=== PATIENT | male | born 1975 | race Two or more races ===

== ENCOUNTER → 2017-12-01 | Outpatient (CLI) | payer OTHER ==
[2017-12-01 13:00] LABS: ALBUMIN/GLOBULIN RATIO 1.18 (1.00-1.93); ALKALINE PHOSPHATASE 69 U/L (45-117); ALT/SGPT 22 U/L (12-78); ANION GAP 7 MEQ/L (8-16); AST/SGOT 14 U/L (7-37); BILIRUBIN,TOTAL 0.7 MG/DL (0.2-1.0); BLOOD UREA NITROGEN 11 MG/DL (7-18); CALCIUM LEVEL 8.9 MG/DL (8.5-10.1); CARBON DIOXIDE LEVEL 30 MEQ/L (21-32); CHLORIDE LEVEL 104 MEQ/L (98-107); CHOLESTEROL LEVEL 163 MG/DL (<200); CREATININE FOR GFR 0.87 MG/DL (0.70-1.30); GLOMERULAR FILTRATION RATE > 60.0 (>60); GLUCOSE, FASTING 87 MG/DL (70-100); HDL CHOLESTEROL 50 MG/DL (>40); LDL CHOLESTEROL 91.2 MG/DL (<100); NON-HDL-C 113 MG/DL; POTASSIUM SERUM 3.9 MEQ/L (3.5-5.1); SODIUM LEVEL 141 MEQ/L (136-145); TOTAL PROTEIN 7.4 GM/DL (6.4-8.2); TRIGLYCERIDES LEVEL 109 MG/DL (<150)
== END ==
LOC: M LAB 11:30
DX: Z00.01 Encounter for general adult medical examination with abnormal findings (principal)
CPT/HCPCS: 84443

== ENCOUNTER → 2018-10-11 | Outpatient (CLI) | payer MEDICAID | LOC: M OUTALCOH 07:54 | PROVIDERS: ATTEND Psychiatry & Neurology Psychiatry | DX: Z03.89 Encounter for observation for other suspected diseases and conditions ruled out (principal) ==

== ENCOUNTER 2018-11-01 07:47 | Outpatient (RCR) | payer MEDICAID | END 2018-11-22 | LOC: M OUTALCOH 07:47 | PROVIDERS: ATTEND Psychiatry & Neurology Psychiatry | DX: Z03.89 Encounter for observation for other suspected diseases and conditions ruled out (principal) ==

== ENCOUNTER → 2019-01-22 | Outpatient (CLI) | payer MEDICAID, OTHER ==
--- NOTE | 2019-01-22 08:56 | REP ---
RIGHT UPPER QUADRANT SONOGRAPHY: HISTORY: Evaluate gallbladder and liver. Right upper quadrant pain. FINDINGS: Scanning through the right upper quadrant of the abdomen demonstrates a normal sized thin-walled gallbladder without evidence of stone or polyp. Common bile duct is normal measuring 0.5 cm in greatest diameter. There is evidence of fatty infiltration of the liver with areas of sparing adjacent to the gallbladder. No focal liver lesion is seen. No intrahepatic ductal dilation is observed. No pancreatic abnormality is seen. There is no evidence of ascites or right renal abnormality. The right kidney measures 12.2 x 6.5 x 5.4 cm. Normal caliber aorta is seen. IMPRESSION: Evidence of fatty infiltration of the liver. Otherwise negative right upper quadrant sonography. Electronically Signed by Tonio Durán MD 01/22/2019 09:13 A
== END ==
LOC: M RAD 06:35
PROVIDERS: ATTEND Family Medicine Addiction Medicine
DX: R10.11 Right upper quadrant pain (principal)

== ENCOUNTER → 2019-03-15 | Outpatient (CLI) | payer OTHER ==
--- NOTE | 2019-03-15 13:26 | REP ---
Clinical: Bilateral shoulder pain. Technique: AP and lateral views of the bilateral scapulae. Findings: The bilateral scapula as well as the visualized bilateral shoulders appear essentially symmetric and normal for age. Surrounding soft tissues are unremarkable. Impression: Normal age appropriate bilateral scapula radiograph series. Electronically Signed by Apollo Romero MD 03/15/2019 01:18 P
--- NOTE | 2019-03-15 13:28 | REP ---
Clinical: thoracic pain. Technique: AP, lateral, and swimmers views. Findings: Alignment and kyphosis is maintained. Vertebral bodies intact. No acute fracture / compression injury or subluxation. No degenerative changes. Paravertebral soft tissues are normal. Impression: Normal thoracic spine series. Electronically Signed by Apollo Romero MD 03/15/2019 01:19 P
== END ==
LOC: M RAD 11:54
PROVIDERS: ATTEND Family Medicine Addiction Medicine
DX: M25.511 Pain in right shoulder (principal)

== ENCOUNTER 2019-07-26 09:46 | Day surgery (SDC) | payer OTHER ==
[~2019-07-26] VITALS: Ht 190.5 cm; Wt 106.5 kg
[~2019-07-26 09:46] MED LIST: CITA40TA6 PO; NS 1,000 ML IV ONE; TRAZ-163 PO; ZANT150T40 PO
[2019-07-26] MEDS ORDERED: LIDOCAINE 2% INJ 100 MG/5 ML SDV (FOR ANES.) As Ordered ONE (10:08)
[2019-07-26] MEDS ORDERED: PROPOFOL 200 MG/20 ML VIAL As Ordered ONE ×2 (10:47→12:24)
[2019-07-26] MEDS ORDERED: fentaNYL 100 MCG/2 ML INJECTION (J3010) As Ordered ONE (12:05)
--- NOTE | 2019-07-26 13:07 | ROOR ---
Patient Name: Troy Collier Procedure Date: 07/26/2019 12:03 PM Date of : 1975 Age: 43 Room: [facility] Gender: Male Note Status: Finalized Procedure: Upper GI endoscopy Indications: Heartburn Providers: Ever Funk MD Referring MD: Toño BARTHOLOMEW MD Requesting Provider: Medicines: Monitored Anesthesia Care Complications: No immediate complications. Procedure: Pre-Anesthesia Assessment: - Prior to the procedure, a History and Physical was performed, and patient medications and allergies were reviewed. The patient is competent. The risks and benefits of the procedure and the sedation options and risks were discussed with the patient. All questions were answered and informed consent was obtained. Patient identification and proposed procedure were verified by the physician, the nurse and the anesthesiologist in the procedure room. Mental Status Examination: alert and oriented. Airway Examination: normal oropharyngeal airway and neck mobility. Respiratory Examination: clear to auscultation. CV Examination: normal. Prophylactic Antibiotics: The patient does not require prophylactic antibiotics. Prior Anticoagulants: The patient has taken no previous anticoagulant or antiplatelet agents. ASA Grade Assessment: II - A patient with mild systemic disease. After reviewing the risks and benefits, the patient was deemed in satisfactory condition to undergo the procedure. The anesthesia plan was to use monitored anesthesia care (MAC). Immediately prior to administration of medications, the patient was re-assessed for adequacy to receive sedatives. The heart rate, respiratory rate, oxygen saturations, blood pressure, adequacy of pulmonary ventilation, and response to care were monitored throughout the procedure. The physical status of the patient was re-assessed after the procedure. The Endoscope was introduced through the mouth, and advanced to the second part of duodenum. The upper GI endoscopy was accomplished without difficulty. The patient tolerated the procedure well. Findings: The Z-line was irregular and was found 40 cm from the incisors. Biopsies were taken with a cold forceps for histology. Verification of patient identification for the specimen was done by the physician and nurse using the patient's name, date and medical record number. Estimated blood loss was minimal. Scattered mild inflammation characterized by erythema and granularity was found in the gastric antrum. Biopsies were taken with a cold forceps for Helicobacter pylori testing. The duodenal bulb and second portion of the duodenum were normal. Impression: - Z-line irregular, 40 cm from the incisors. Biopsied. - Gastritis. Biopsied. - Normal duodenal bulb and second portion of the duodenum. Recommendation: - Patient has a contact number available for emergencies. The signs and symptoms of potential delayed complications were discussed with the patient. Return to normal activities tomorrow. Written discharge instructions were provided to the patient. - High fiber diet. - Continue present medications. - Follow an antireflux regimen. - Await pathology results. - Telephone GI clinic for pathology results in 2 weeks. - Return to primary care physician. Ever Funk MD Ever Funk MD 07/26/2019 1:07:30 PM Electronically signed by Ever Funk MD Number of Addenda: 0 Note Initiated On: 07/26/2019 12:03 PM Estimated Blood Loss: Estimated blood loss was minimal.
--- NOTE | 2019-07-26 13:27 | ROOR ---
Patient Name: Troy Collier Procedure Date: 07/26/2019 12:11 PM Date of : 1975 Age: 43 Room: [facility] Gender: Male Note Status: Finalized Procedure: Colonoscopy Indications: Hematochezia Providers: Ever Funk MD Referring MD: Toño BARTHOLOMEW MD Requesting Provider: Medicines: Monitored Anesthesia Care Complications: No immediate complications. Procedure: Pre-Anesthesia Assessment: - Prior to the procedure, a History and Physical was performed, and patient medications and allergies were reviewed. The patient is competent. The risks and benefits of the procedure and the sedation options and risks were discussed with the patient. All questions were answered and informed consent was obtained. Patient identification and proposed procedure were verified by the physician, the nurse and the anesthesiologist in the procedure room. Mental Status Examination: alert and oriented. Airway Examination: normal oropharyngeal airway and neck mobility. Respiratory Examination: clear to auscultation. CV Examination: normal. Prophylactic Antibiotics: The patient does not require prophylactic antibiotics. Prior Anticoagulants: The patient has taken no previous anticoagulant or antiplatelet agents. ASA Grade Assessment: II - A patient with mild systemic disease. After reviewing the risks and benefits, the patient was deemed in satisfactory condition to undergo the procedure. The anesthesia plan was to use monitored anesthesia care (MAC). Immediately prior to administration of medications, the patient was re-assessed for adequacy to receive sedatives. The heart rate, respiratory rate, oxygen saturations, blood pressure, adequacy of pulmonary ventilation, and response to care were monitored throughout the procedure. The physical status of the patient was re-assessed after the procedure. The Colonoscope was introduced through the anus and advanced to the cecum, identified by appendiceal orifice and ileocecal valve. The colonoscopy was performed without difficulty. The patient tolerated the procedure well. The quality of the bowel preparation was good. The terminal ileum, ileocecal valve, appendiceal orifice, and rectum were photographed. Scope insertion time was 3 minutes. Scope withdrawal time was 11 minutes. The total duration of the procedure was 14 minutes. Findings: The perianal and digital rectal examinations were normal. The terminal ileum appeared normal. Three sessile polyps were found in the cecum. The polyps were 3 to 10 mm in size. These polyps were removed with a cold snare. Resection and retrieval were complete. To close a defect after polypectomy, one hemostatic clip was successfully placed. There was no bleeding at the end of the procedure. A 12 mm polyp was found in the descending colon. The polyp was sessile. The polyp was removed with a cold snare. Resection and retrieval were complete. Two sessile polyps were found in the rectum. The polyps were 4 to 6 mm in size. These polyps were removed with a cold snare. Resection and retrieval were complete. Verification of patient identification for the specimen was done by the physician and nurse using the patient's name, date and medical record number. Estimated blood loss was minimal. Non-bleeding external and internal hemorrhoids were found during retroflexion. The hemorrhoids were medium-sized. Impression: - The examined portion of the ileum was normal. - Three 3 to 10 mm polyps in the cecum, removed with a cold snare. Resected and retrieved. Clip was placed. - One 12 mm polyp in the descending colon, removed with a cold snare. Resected and retrieved. - Two 4 to 6 mm polyps in the rectum, removed with a cold snare. Resected and retrieved. - Non-bleeding external and internal hemorrhoids. Recommendation: - Patient has a contact number available for emergencies. The signs and symptoms of potential delayed complications were discussed with the patient. Return to normal activities tomorrow. Written discharge instructions were provided to the patient. - High fiber diet. - Continue present medications. - Await pathology results. - Repeat colonoscopy in 3 - 5 years for surveillance based on pathology results. - Telephone GI clinic for pathology results in 2 weeks. - Return to primary care physician. Ever Funk MD Ever Funk MD 07/26/2019 1:27:01 PM Electronically signed by Ever Funk MD Number of Addenda: 0 Note Initiated On: 07/26/2019 12:11 PM Estimated Blood Loss: Estimated blood loss was minimal.
[2019-07-26 13:30] VITALS: BP 153/88
== END 2019-07-26 14:00 | disposition home or self-care (01) ==
LOC: M OPP 09:46
PROVIDERS: ATTEND Internal Medicine Gastroenterology
DX: K64.8 Other hemorrhoids (principal); D12.0 Benign neoplasm of cecum; K62.1 Rectal polyp; D12.4 Benign neoplasm of descending colon; K92.1 Melena; K22.8 Other specified diseases of esophagus; K29.70 Gastritis, unspecified, without bleeding; R12 Heartburn
CPT/HCPCS: 43239; 45385; 88305; J3010

== ENCOUNTER → 2019-09-04 | Outpatient (REF) | payer OTHER ==
[~2019-09-04] MED LIST changes: -NS 1,000 ML IV ONE
== END ==
LOC: M LAB REF 13:57
PROVIDERS: ATTEND Internal Medicine Gastroenterology
DX: B96.81 Helicobacter pylori [H. pylori] as the cause of diseases classified elsewhere (principal)

== ENCOUNTER → 2020-09-01 | Outpatient (REF) | payer OTHER ==
[~2020-09-01] MED LIST changes: -TRAZ-163 PO; +TRAZ-257 PO
[2020-09-01 16:58] LABS: BASO % 0.4 % (0.0-1.0); EOS # 0.2 10^3/uL (0.0-0.5); EOS % 2.5 % (0.0-3.0); HEMATOCRIT 49.7 % (42.0-52.0); HEMOGLOBIN 15.9 g/dl (13.5-17.5); LYMPH # 2.4 10^3/uL (1.5-5.0); LYMPH % 34.8 % (24.0-44.0); MEAN CORPUSCULAR HEMOGLOBIN 27.6 pg (27.0-33.0); MEAN CORPUSCULAR VOLUME 86.1 fl (80.0-96.0); MONO # 0.5 10^3/uL (0.0-0.8); MONO % 6.7 % (0.0-5.0); NEUTROPHILS # 3.8 10^3/uL (1.5-8.5); NEUTROPHILS % 55.3 % (36.0-66.0); PLATELET COUNT, AUTOMATED 272 10^3/uL (150-450); RED BLOOD COUNT 5.77 10^6/uL (4.30-6.10); WHITE BLOOD COUNT 6.9 10^3/uL (4.0-10.0)
[2020-09-01 17:27] LABS: ALBUMIN 4.4 GM/DL (3.2-5.2); ALT/SGPT 34 U/L (12-78); BILIRUBIN,TOTAL 0.6 MG/DL (0.2-1.0); BLOOD UREA NITROGEN 11 MG/DL (7-18); CALCIUM LEVEL 9.8 MG/DL (8.5-10.1); CARBON DIOXIDE LEVEL 32 MEQ/L (21-32); CHLORIDE LEVEL 103 MEQ/L (98-107); CHOLESTEROL LEVEL 205 MG/DL (<200); CHOLESTEROL RISK RATIO 4.659 (<5); CREATININE FOR GFR 0.96 MG/DL (0.70-1.30); FREE T4 0.66 NG/DL (0.76-1.46); GLOMERULAR FILTRATION RATE > 60.0 (>60); GLUCOSE, FASTING 78 MG/DL (70-100); HDL CHOLESTEROL 44 MG/DL (>40); LDL CHOLESTEROL 84 MG/DL (<100); NON-HDL-C 161 MG/DL; POTASSIUM SERUM 4.7 MEQ/L (3.5-5.1); SODIUM LEVEL 139 MEQ/L (136-145); TOTAL 25(OH) VITAMIN D 12.6 NG/ML (30.0-100.0); TOTAL PROTEIN 7.8 GM/DL (6.4-8.2); TRIGLYCERIDES LEVEL 384 MG/DL (<150)
[2020-09-01 17:31] LABS: HEMOGLOBIN A1c 5.7 %
[2020-09-03 23:07] LABS: PSA TOTAL 0.8 ng/mL (0.0-4.0)
== END ==
LOC: M LAB REF 16:21
PROVIDERS: ATTEND Nurse Practitioner Family
DX: K21.9 Gastro-esophageal reflux disease without esophagitis (principal); E66.9 Obesity, unspecified

== ENCOUNTER → 2021-03-15 | Outpatient (REF) | payer OTHER, MEDICAID ==
[2021-03-15 12:16] LABS: BASO % 0.6 % (0.0-1.0); EOS # 0.1 10^3/uL (0.0-0.5); EOS % 2.7 % (0.0-3.0); HEMATOCRIT 46.8 % (42.0-52.0); LYMPH # 1.6 10^3/uL (1.5-5.0); LYMPH % 31.1 % (24.0-44.0); MEAN CORPUSCULAR HEMOGLOBIN 28.5 pg (27.0-33.0); MEAN CORPUSCULAR HGB CONC 32.1 g/dl (32.0-36.5); MEAN CORPUSCULAR VOLUME 88.8 fl (80.0-96.0); MONO # 0.5 10^3/uL (0.0-0.8); MONO % 9.4 % (2.0-8.0); NEUTROPHILS # 2.9 10^3/uL (1.5-8.5); PLATELET COUNT, AUTOMATED 270 10^3/uL (150-450); RED BLOOD COUNT 5.27 10^6/uL (4.30-6.10); WHITE BLOOD COUNT 5.2 10^3/uL (4.0-10.0)
[2021-03-15 13:06] LABS: ALBUMIN 4.3 GM/DL (3.2-5.2); ALT/SGPT 25 U/L (12-78); BILIRUBIN,TOTAL 0.7 MG/DL (0.2-1.0); BLOOD UREA NITROGEN 12 MG/DL (7-18); CARBON DIOXIDE LEVEL 30 MEQ/L (21-32); CHLORIDE LEVEL 106 MEQ/L (98-107); CHOLESTEROL LEVEL 164 MG/DL (<200); CHOLESTEROL RISK RATIO 2.827 (<5); CREATININE FOR GFR 0.77 MG/DL (0.70-1.30); FREE T4 0.75 NG/DL (0.76-1.46); GLOMERULAR FILTRATION RATE > 60.0 (>60); GLUCOSE, FASTING 87 MG/DL (70-100); HDL CHOLESTEROL 58 MG/DL (>40); LDL CHOLESTEROL 91 MG/DL (<100); NON-HDL-C 106 MG/DL; POTASSIUM SERUM 3.9 MEQ/L (3.5-5.1); SODIUM LEVEL 138 MEQ/L (136-145); THYROID STIMULATING HORMONE 0.565 uIU/ML (0.358-3.740); TOTAL 25(OH) VITAMIN D 25.8 NG/ML (30.0-100.0); TOTAL PROTEIN 7.4 GM/DL (6.4-8.2); TRIGLYCERIDES LEVEL 74 MG/DL (<150)
[2021-03-15 14:30] LABS: HEMOGLOBIN A1c 5.4 %
== END ==
LOC: M LAB REF 11:23
PROVIDERS: ATTEND Nurse Practitioner Family
DX: Z13.228 Encounter for screening for other metabolic disorders (principal); E55.9 Vitamin D deficiency, unspecified; R73.03 Prediabetes

== ENCOUNTER → 2021-04-26 | Outpatient (CLI) | payer SELFPAY | LOC: M LABSMTC 09:43 | PROVIDERS: ATTEND Pediatrics | DX: Z11.52 Encounter for screening for COVID-19 (principal) ==

== ENCOUNTER 2021-06-10 06:27 | Emergency (ER) | payer MEDICAID, OTHER, SELFPAY ==
[~2021-06-10] VITALS: Ht 190.5 cm; Wt 98.6 kg
--- NOTE | 2021-06-10 09:18 | REP ---
INDICATION: pain COMPARISON: None. TECHNIQUE: Internal rotation, external rotation, and Y view. FINDINGS: No acute fracture or dislocation. The acromioclavicular joint appears normal. There is subtle blunting to the ossified glenoid rim. The glenohumeral joint is otherwise normal in appearance and position. No periarticular calcifications or loose bodies are appreciated. Sub acromial space is normal. Surrounding soft tissues are unremarkable. IMPRESSION: Some mild degenerative changes to the glenoid suggested. <Electronically signed by Apollo Romero > 06/10/21 [id number]
[2021-06-10] MEDS ORDERED: NAPR-837 PO (10:27)
[2021-06-10 10:34] VITALS: BP 130/74
== END 2021-06-10 10:37 | disposition home or self-care (01) ==
LOC: M ED 06:27
DX: M75.81 Other shoulder lesions, right shoulder (principal); F41.9 Anxiety disorder, unspecified; F33.9 Major depressive disorder, recurrent, unspecified; Z79.899 Other long term (current) drug therapy

== ENCOUNTER → 2021-08-16 | Outpatient (CLI) | payer OTHER ==
[~2021-08-16] MED LIST changes: +NAPR-837 PO
--- NOTE | 2021-08-16 14:54 | REP ---
INDICATION: DORSALGIA PT NEEDS EKG AFTER XRAYS. COMPARISON: 03/28/2018 TECHNIQUE: PA and lateral FINDINGS: The superior mediastinal structures are midline. The cardiac silhouette is unremarkable in size, shape, and position. The diaphragmatic surfaces of the lungs are regular, and the costophrenic angles are clear. The pulmonary workman are clear. The imaged osseous structures are intact. IMPRESSION: There is no acute cardiopulmonary disease. <Electronically signed by Wilder Alexander > 08/16/21 [id number]
--- NOTE | 2021-08-16 14:56 | REP ---
INDICATION: DORSALGIA PT NEEDS EKG AFTER XRAYS. COMPARISON: 03/15/2019 TECHNIQUE: AP and lateral views FINDINGS: There is no acute fracture or destructive osseous lesion. There is no significant change compared to the prior exam. IMPRESSION: No acute abnormality or evidence of significant change compared to the prior exam. <Electronically signed by Wilder Alexander > 08/16/21 [id number]
--- NOTE | 2021-08-16 14:56 | REP ---
INDICATION: DORSALGIA PT NEEDS EKG AFTER XRAYS. COMPARISON: 03/15/2019 TECHNIQUE: AP and lateral FINDINGS: Vertebral body height and alignment is unchanged. The disc spaces are unchanged. The pedicles are again seen to be intact bilaterally. IMPRESSION: No acute abnormality or evidence of significant change compared to the prior exam. <Electronically signed by Wilder Alexander > 08/16/21 [id number]
--- NOTE | 2021-08-16 21:17 | ECGEPIP ---
[facility] Test Date: 2021-08-16 Pat Name: DEBORAH PADILLA Department: Room: - Gender: Male Vp Public Relations: neva : 1975 Requested By: Christopher Orosco Order Number: [id number] Reading MD: Campbell Machuca Measurements Intervals [place] Rate: 57 P: 61 DE: 158 QRS: 5 QRSD: 84 T: 21 QT: 396 QTc: 385 Interpretive Statements Sinus bradycardia Minimal voltage criteria for LVH, may be normal variant ( Sokolow-Pagan ) Compared to prior tracings(3) in the system, Atrial Fib was noted on 12/18/14 at 2 23:46. Otherwise no significant changes. Electronically Signed on 08-16-2021 21:17:08 EDT by Campbell Machuca
== END ==
LOC: M EKG 12:16
PROVIDERS: ATTEND Family Medicine Addiction Medicine
DX: M54.9 Dorsalgia, unspecified (principal)

== ENCOUNTER → 2021-09-01 | Outpatient (REF) | payer OTHER | LOC: M SMT 13:11 | PROVIDERS: ATTEND Urology | DX: Z30.2 Encounter for sterilization (principal) ==

== ENCOUNTER 2021-09-14 08:37 | Emergency (ER) | payer OTHER ==
[~2021-09-14] VITALS: Ht 190.5 cm; Wt 100.2 kg
[2021-09-14] MEDS ORDERED: HYDR-3713 (08:46)
[2021-09-14 11:41] VITALS: BP 136/83
== END 2021-09-14 11:42 | disposition home or self-care (01) ==
LOC: M ED 08:37
DX: N43.3 Hydrocele, unspecified (principal); Z98.52 Vasectomy status

== ENCOUNTER → 2021-11-01 | Outpatient (REF) | payer OTHER ==
[~2021-11-01] MED LIST changes: +HYDR-3713
[2021-11-02 07:29] LABS: SEMEN APPEARANCE OPAQUE (OPAQUE); SEMEN VISCOSITY LIQUID (LIQUID)
[2021-11-02 07:30] LABS: WBC CONCENTRATION <=1 M/ml (<=1 M/ml)
== END ==
LOC: M SMT 11:20
PROVIDERS: ATTEND Urology
DX: Z30.2 Encounter for sterilization (principal)

== ENCOUNTER → 2022-02-23 | Outpatient (REF) | payer OTHER | LOC: M SFHCWAGY 17:33 | PROVIDERS: ATTEND Nurse Practitioner Family | DX: D22.39 Melanocytic nevi of other parts of face (principal) ==

== ENCOUNTER → 2022-08-30 | Outpatient (CLI) | payer OTHER ==
[~2022-08-30] MED LIST changes: +ERGO500029 PO; +VITMTA PO
== END ==
LOC: M LABSMTC 10:07
PROVIDERS: ATTEND Anesthesiology
DX: Z01.812 Encounter for preprocedural laboratory examination (principal); Z11.52 Encounter for screening for COVID-19

== ENCOUNTER 2022-09-01 08:31 | Day surgery (SDC) | payer OTHER ==
[~2022-09-01] VITALS: Ht 190.5 cm; Wt 96.2 kg
[~2022-09-01 08:31] MED LIST changes: +NS 1,000 ML IV ONE
[2022-09-01] MEDS ORDERED: propofoL 200 MG/20 ML VIAL As Ordered ONE ×2 (11:34→12:01)
[2022-09-01 12:16] VITALS: BP 125/70
== END 2022-09-01 12:25 | disposition home or self-care (01) ==
LOC: M OPP 08:31
PROVIDERS: ATTEND Internal Medicine Gastroenterology
DX: Z86.010 Personal history of colon polyps (principal); K64.4 Residual hemorrhoidal skin tags; K64.8 Other hemorrhoids; Z87.891 Personal history of nicotine dependence; R12 Heartburn; F41.9 Anxiety disorder, unspecified

== ENCOUNTER → 2023-10-24 | Outpatient (REF) | payer OTHER ==
[~2023-10-24] MED LIST changes: -NS 1,000 ML IV ONE
[2023-10-24 14:01] LABS: BASO % 0.8 % (0.0-1.0); EOS # 0.1 10^3/uL (0.0-0.5); EOS % 2.9 % (0.0-3.0); HEMATOCRIT 45.7 % (42.0-52.0); HEMOGLOBIN 15.2 g/dl (13.5-17.5); LYMPH # 1.6 10^3/uL (1.5-5.0); LYMPH % 32.3 % (24.0-44.0); MEAN CORPUSCULAR HEMOGLOBIN 29.1 pg (27.0-33.0); MEAN CORPUSCULAR HGB CONC 33.3 g/dl (32.0-36.5); MEAN CORPUSCULAR VOLUME 87.5 fl (80.0-96.0); MONO # 0.3 10^3/uL (0.0-0.8); NEUTROPHILS # 2.8 10^3/uL (1.5-8.5); NEUTROPHILS % 57.6 % (36.0-66.0); PLATELET COUNT, AUTOMATED 242 10^3/uL (150-450); RED BLOOD COUNT 5.22 10^6/uL (4.30-6.10); WHITE BLOOD COUNT 4.8 10^3/uL (4.0-10.0)
[2023-10-24 14:26] LABS: BLOOD UREA NITROGEN 11 MG/DL (9-23); CARBON DIOXIDE LEVEL 29 MMOL/L (20-31); CHLORIDE LEVEL 107 MMOL/L (98-107); CHOLESTEROL LEVEL 182 MG/DL (<200); CHOLESTEROL RISK RATIO 4.14 (<5); CREATININE FOR GFR 0.83 MG/DL (0.70-1.30); GLOMERULAR FILTRATION RATE > 60.0 (>60); GLUCOSE, FASTING 100 MG/DL (60-100); HDL CHOLESTEROL 43.9 MG/DL (>40); LDL CHOLESTEROL 94.3 MG/DL (<100); NON-HDL-C 138.1 MG/DL; POTASSIUM SERUM 4.2 MMOL/L (3.5-5.1); SODIUM LEVEL 139 MMOL/L (136-145); TRIGLYCERIDES LEVEL 219 MG/DL (<150)
[2023-10-24 14:29] LABS: THYROID STIMULATING HORMONE 0.972 uIU/ML (0.55-4.78)
[2023-10-24 14:58] LABS: HEMOGLOBIN A1c 5.4 % (4.0-6.0)
== END ==
LOC: M LAB REF 13:22
PROVIDERS: ATTEND Nurse Practitioner Family
DX: R07.89 Other chest pain (principal); Z68.28 Body mass index [BMI] 28.0-28.9, adult; E66.9 Obesity, unspecified

== ENCOUNTER → 2024-01-05 | Outpatient (REF) | payer OTHER | LOC: M LAB REF 15:57 | PROVIDERS: ATTEND Nurse Practitioner Family | DX: J06.9 Acute upper respiratory infection, unspecified (principal) ==

== ENCOUNTER → 2025-03-03 | Outpatient (REF) | payer OTHER | LOC: M SFHCLERA 09:54 | PROVIDERS: ATTEND Internal Medicine | DX: Z00.00 Encounter for general adult medical examination without abnormal findings (principal) ==